=== PATIENT | male | born 1950 | race Caucasian/White ===

== ENCOUNTER → 2017-01-07 | Outpatient (CLI) | payer OTHER, MEDICARE ==
[~2017-01-07] MED LIST: ASPI325T PO; LISI-360 PO; LORTA5 PO; TAB-TAB PO; Z.0.COMMODE-3:1; Z.0.WALKERFRONT
[2017-01-07 08:39] LABS: HEMATOCRIT 44.2 % (39.0-51.0); MEAN CELL VOLUME 92.8 FL (80.0-100.0); MEAN CORPUSCULAR HEMOGLOBIN 32.2 PG (27.0-34.0); MEAN CORPUSCULAR HGB CONC 34.7 % (32.0-36.0); PLATELET COUNT 248 TH/MM3 (150-450); RED BLOOD COUNT 4.77 MIL/MM3 (4.50-5.90); RED CELL DISTRIBUTION WIDTH 13.7 % (11.6-17.2); REVIEW FLAG FINAL; WHITE BLOOD COUNT 7.6 TH/MM3 (4.0-11.0)
[2017-01-07 08:57] LABS: ALT (GPT) 37 U/L (12-78)
[2017-01-07 08:59] LABS: ALKALINE PHOSPHATASE 86 U/L (45-117); HDL CHOLESTEROL 29.5 MG/DL (40.0-60.0); LDL CHOLESTEROL 82 MG/DL (0-99); TOTAL BILIRUBIN ADULT 0.3 MG/DL (0.2-1.0)
[2017-01-07 09:00] LABS: ANION GAP 7 MEQ/L (5-15); AST (GOT) 25 U/L (15-37); BICARBONATE 28.5 MEQ/L (21.0-32.0); BLOOD UREA NITROGEN 13 MG/DL (7-18); CHLORIDE 105 MEQ/L (98-107); GLOMERULAR FILTRATION RATE 82 ML/MIN (>89); GLUCOSE,FASTING 108 MG/DL (74-99); POTASSIUM 4.4 MEQ/L (3.5-5.1); SODIUM (NA) 140 MEQ/L (136-145)
== END ==
LOC: CLAB 07:47
PROVIDERS: ATTEND Urology
DX: E78.5 Hyperlipidemia, unspecified (principal); N40.0 Benign prostatic hyperplasia without lower urinary tract symptoms; R97.20 Elevated prostate specific antigen [PSA]; I10 Essential (primary) hypertension; E78.4 Other hyperlipidemia; M17.10 Unilateral primary osteoarthritis, unspecified knee; N52.9 Male erectile dysfunction, unspecified
CPT/HCPCS: 36415; 80053; 80061; 84153; 85027

== ENCOUNTER 2017-03-07 12:39 | Emergency (ER) | payer OTHER, MEDICARE ==
[~2017-03-07] VITALS: Ht 172.7 cm; Wt 89.5 kg
[2017-03-07 12:46] VITALS: BP 178/95; PULSE 104; RESP 16; TEMP 98.4; O2SAT 97
--- NOTE | 2017-03-07 13:09 | PD ---
HPI Chief Complaint: SKIN Time Seen by Provider: 13:00 Travel History International Travel<30 days: No Contact w/Intl Traveler<30days: No Traveled to known affect area: No History of Present Illness HPI 66-year-old male presents to the emergency room for evaluation of a cat bite that occurred about 36 hours ago. Patient was sitting his daughter's cat when it attacked him and bit his right thumb. He has been keeping it clean and dry and keeping triple antibiotic ointment on it. States he was fine yesterday but when he woke up this morning he noticed increasing redness and swelling. No significant drainage. Denies fever, chills, nausea, and vomiting. Cat is up-to -date on rabies. He is up-to-date on tetanus. Only history of hypertension. PFSH Past Medical History Arthritis: Yes Anxiety: Yes (OCD) Depression: No Heart Rhythm Problems: No Cancer: No Cardiovascular Problems: No Chemotherapy: No Congestive Heart Failure: No Diabetes: No Diminished Hearing: No Endocrine: No GERD: No Genitourinary: Yes (BPH) Hepatitis: No Hiatal Hernia: No Hypertension: Yes Immune Disorder: No Kidney Stones: No Musculoskeletal: Yes (ARTHRITIS) Neurologic: No Psychiatric: No Reproductive: No Respiratory: No Radiation Therapy: No Renal Failure: No Sickle Cell Disease: No Thyroid Disease: No Ulcer: No Past Surgical History AICD: No Joint Replacement: No Oral Surgery: Yes (T&A) Pacemaker: No Tonsillectomy: Yes Social History Alcohol Use: Yes (occac) Tobacco Use: No (quit 8 yrs ago) Substance Use: No Allergies-Medications (Allergen,Severity, Reaction): Coded Allergies: No Known Allergies (Unverified , 08/20/15) Reported Meds & Prescriptions Reported Meds & Active Scripts Active Walker Front Wheel (Walkerfront) Device 1 Unit Commode-3:1 Device 1 Unit Aspirin 325 Mg Tab (Aspirin) 325 Mg Tab 325 Mg PO DAILY Hydrocodone/Acetaminophen 5 mg/325 mg 1 Tab 1 Tab PO Q4H PRN Reported Multivitamin (Multivitamins) 1 Tab Tab 1 Tab PO DAILY Lisinopril 10 mg (Lisinopril) 10 Mg Tab 20 Mg PO DAILY Review of Systems Except as stated in HPI: all other systems reviewed are Neg Physical Exam Narrative GENERAL: Well-nourished, well-developed male in no acute distress. Afebrile. Ambulatory. SKIN: Focused skin assessment warm/dry. There are 2 puncture wounds to the right thumb on the radial and ulnar aspects. There is surrounding erythema extending up to the wrist. No purulent drainage. HEAD: Normocephalic. EYES: No scleral icterus. No injection or drainage. NECK: Supple, trachea midline. No JVD or lymphadenopathy. CARDIOVASCULAR: Regular rate and rhythm without murmurs, gallops, or rubs. RESPIRATORY: Breath sounds equal bilaterally. No accessory muscle use. MUSCULOSKELETAL: No cyanosis. Mild to moderate edema of the right thumb. Limited range of motion secondary to edema. Minimal pain. Less than 2 second capillary refill distally. Data Data Last Documented VS Vital Signs Date Time Temp Pulse Resp B/P Pulse Ox O2 Delivery O2 Flow Rate FiO2 03/07/17 12:46 98.4 104 16 178/95 97 Room Air MDM Medical Decision Making Medical Screen Exam Complete: Yes Emergency Medical Condition: Yes Medical Record Reviewed: Yes Differential Diagnosis Scratch, animal bite, cellulitis, folliculitis Narrative Course 66-year-old male presents to the emergency room for evaluation of a cat bite that occurred 36 hours ago. Patient is afebrile and well-appearing in the emergency room. Vital signs stable. Physical exam reveals 2 puncture wounds on the right thumb on the ulnar and radial aspects. There is surrounding erythema and edema. No purulent drainage. No lymphangitis. No abscess. Patient will be discharged with prescription for Augmentin and told to follow- up with a primary care physician or return to the emergency room for worsening symptoms. He understands and agrees to plan. Diagnosis Primary Impression: Cat bite of finger Qualified Code: S61.259A - Cat bite of finger, initial encounter Referrals: Primary Care Physician Patient Instructions: Animal Bite (ED) Additional Instructions: Keep wounds clean and dry. Apply triple antibiotic ointment daily. Augmentin as directed, until gone. Elevate. Follow-up with a primary care physician. Return to the emergency room for worsening symptoms. Med/Other Pt SpecificInfo: Prescription(s) given Disposition: 01 DISCHARGE HOME Condition: Stable Lydia Romeo Mar 07, 2017 13:09
[2017-03-07] MEDS ORDERED: ALLE10TA10 PO (13:11)
[2017-03-07] MEDS ORDERED: MULT1TAB46 PO (13:11)
[2017-03-07] MEDS ORDERED: LISI-515 PO (13:11)
[2017-03-07] MEDS ORDERED: AUGM875T3 PO (13:19)
== END 2017-03-07 13:26 | disposition home or self-care (01) ==
LOC: PHED 12:39
DX: S61.259A Open bite of unspecified finger without damage to nail, initial encounter (principal); I10 Essential (primary) hypertension; W55.01XA Bitten by cat, initial encounter; Y92.009 Unspecified place in unspecified non-institutional (private) residence as the place of occurrence of the external cause
CPT/HCPCS: 99283

== ENCOUNTER → 2017-06-14 | Outpatient (CLI) | payer OTHER, MEDICARE ==
[~2017-06-14] MED LIST changes: +ALLE10TA10 PO; -ASPI325T PO; +AUGM875T3 PO; -LISI-360 PO; +LISI-515 PO; -LORTA5 PO; +MULT1TAB46 PO; -TAB-TAB PO; -Z.0.COMMODE-3:1; -Z.0.WALKERFRONT
[2017-06-14 10:30] LABS: HEMATOCRIT 45.3 % (39.0-51.0); MEAN CELL VOLUME 94.7 FL (80.0-100.0); MEAN CORPUSCULAR HEMOGLOBIN 32.2 PG (27.0-34.0); PLATELET COUNT 269 TH/MM3 (150-450); RED BLOOD COUNT 4.78 MIL/MM3 (4.50-5.90); RED CELL DISTRIBUTION WIDTH 13.6 % (11.6-17.2); REVIEW FLAG FINAL; WHITE BLOOD COUNT 5.9 TH/MM3 (4.0-11.0)
[2017-06-14 10:50] LABS: ALT (GPT) 47 U/L (12-78); ANION GAP 7 MEQ/L (5-15); AST (GOT) 29 U/L (15-37); BICARBONATE 26.2 MEQ/L (21.0-32.0); BLOOD UREA NITROGEN 13 MG/DL (7-18); CHLORIDE 106 MEQ/L (98-107); GLOMERULAR FILTRATION RATE 100 ML/MIN (>89); GLUCOSE,FASTING 97 MG/DL (74-99); POTASSIUM 4.2 MEQ/L (3.5-5.1); SODIUM (NA) 139 MEQ/L (136-145)
[2017-06-14 11:00] LABS: ALKALINE PHOSPHATASE 84 U/L (45-117); HDL CHOLESTEROL 29.4 MG/DL (40.0-60.0); LDL CHOLESTEROL 95 MG/DL (0-99); TOTAL BILIRUBIN ADULT 0.3 MG/DL (0.2-1.0)
== END ==
LOC: CLAB 09:53
PROVIDERS: ATTEND Urology
DX: R97.20 Elevated prostate specific antigen [PSA] (principal); I10 Essential (primary) hypertension; E78.4 Other hyperlipidemia; M17.10 Unilateral primary osteoarthritis, unspecified knee; N52.9 Male erectile dysfunction, unspecified; N40.0 Benign prostatic hyperplasia without lower urinary tract symptoms; Z68.30 Body mass index [BMI] 30.0-30.9, adult
CPT/HCPCS: 36415; 80053; 80061; 84153; 84154; 84443; 85027

== ENCOUNTER → 2017-07-27 | Outpatient (CLI) | payer OTHER, MEDICARE | LOC: CLAB 12:30 | PROVIDERS: ATTEND Urology | DX: R97.20 Elevated prostate specific antigen [PSA] (principal) | CPT/HCPCS: 36415; 84153 ==

== ENCOUNTER → 2018-01-17 | Outpatient (CLI) | payer OTHER ==
[2018-01-17 08:07] LABS: HEMATOCRIT 47.1 % (39.0-51.0); HEMOGLOBIN 16.4 GM/DL (13.0-17.0); MEAN CELL VOLUME 93.4 FL (80.0-100.0); MEAN CORPUSCULAR HEMOGLOBIN 32.5 PG (27.0-34.0); MEAN CORPUSCULAR HGB CONC 34.8 % (32.0-36.0); MEAN PLATELET VOLUME 7.9 FL (7.0-11.0); PLATELET COUNT 297 TH/MM3 (150-450); RED BLOOD COUNT 5.04 MIL/MM3 (4.50-5.90); RED CELL DISTRIBUTION WIDTH 13.8 % (11.6-17.2); WHITE BLOOD COUNT 6.2 TH/MM3 (4.0-11.0)
[2018-01-17 08:29] LABS: ALBUMIN 3.7 GM/DL (3.4-5.0); AST (GOT) 43 U/L (15-37); BLOOD UREA NITROGEN 17 MG/DL (7-18); CALCIUM 8.9 MG/DL (8.5-10.1); CHLORIDE 107 MEQ/L (98-107); CREATININE 1.01 MG/DL (0.60-1.30); GLOMERULAR FILTRATION RATE 73 ML/MIN (>89); GLUCOSE,FASTING 120 MG/DL (74-99); SODIUM (NA) 141 MEQ/L (136-145)
[2018-01-17 08:35] LABS: ALKALINE PHOSPHATASE 90 U/L (45-117); ALT (GPT) 41 U/L (12-78); CHOLESTEROL 180 MG/DL (120-200); CHOLESTEROL/ HDL RATIO 6.22 RATIO; HDL CHOLESTEROL 28.9 MG/DL (40.0-60.0); LDL CHOLESTEROL 90 MG/DL (0-99); TOTAL BILIRUBIN ADULT 0.5 MG/DL (0.2-1.0); TOTAL PROTEIN 7.4 GM/DL (6.4-8.2); TRIGLYCERIDES 307 MG/DL (42-150)
== END ==
LOC: CLAB 07:40
PROVIDERS: ATTEND Family Medicine
DX: E78.5 Hyperlipidemia, unspecified (principal); I10 Essential (primary) hypertension; M17.10 Unilateral primary osteoarthritis, unspecified knee; N52.9 Male erectile dysfunction, unspecified; N40.0 Benign prostatic hyperplasia without lower urinary tract symptoms; R97.20 Elevated prostate specific antigen [PSA]
CPT/HCPCS: 36415; 80053; 80061; 84443; 85027